=== PATIENT | female | born 1980 | race Caucasian/White ===

== ENCOUNTER → 2018-05-04 | Outpatient (CLI) | payer BC, OTHER | LOC: MC.RAD 10:13 | DX: Z12.31 Encounter for screening mammogram for malignant neoplasm of breast (principal) ==

== ENCOUNTER → 2019-06-11 | Outpatient (CLI) | payer BC, OTHER | LOC: MC.RAD 09:15 | DX: Z12.31 Encounter for screening mammogram for malignant neoplasm of breast (principal); N64.89 Other specified disorders of breast ==

== ENCOUNTER → 2019-06-18 | Outpatient (CLI) | payer BC, OTHER | LOC: MC.RAD 09:19 | DX: N64.89 Other specified disorders of breast (principal) | CPT/HCPCS: G0279 ==

== ENCOUNTER → 2020-07-04 | Outpatient (CLI) | payer BC | LOC: MC.RAD 07:20 | DX: Z12.31 Encounter for screening mammogram for malignant neoplasm of breast (principal) ==

== ENCOUNTER → 2021-08-06 | Outpatient (CLI) | payer BC | LOC: MC.RAD 10:20 | DX: Z12.31 Encounter for screening mammogram for malignant neoplasm of breast (principal) ==

== ENCOUNTER → 2022-09-05 | Outpatient (CLI) | payer BC, OTHER ==
[~2022-09-05] VITALS: Ht 170.2 cm; Wt 82.8 kg
[~2022-09-05] MED LIST: FLEXERIL5 MG PO; HORIZANT300 MG PO
[2022-09-05 09:42] VITALS: BP 116/79; PULSE 111; TEMP 97.7
[2022-09-05 10:43] VITALS: BP 126/87; PULSE 99
== END ==
LOC: COL.RAD 09:23
DX: M54.12 Radiculopathy, cervical region (principal)
CPT/HCPCS: J1100

== ENCOUNTER → 2023-10-20 | Outpatient (CLI) | payer BC, OTHER | LOC: MC.RAD 11:11 | DX: Z12.31 Encounter for screening mammogram for malignant neoplasm of breast (principal) ==